=== PATIENT | female | born 1950 | race Caucasian/White ===

== ENCOUNTER 2016-10-08 09:02 | Emergency (ER) | payer MEDICARE, BC ==
[~2016-10-08] VITALS: Ht 177.8 cm; Wt 82.5 kg
[~2016-10-08 09:02] MED LIST: BABY81CH PO; TRAM50 PO; ZOVI200C24 PO; osteo-biflex
[2016-10-08 09:06] VITALS: BP 132/89; PULSE 104; RESP 16; TEMP 99.3; O2SAT 97
[2016-10-08] MEDS ORDERED: PROM6.256 PO (09:33)
[2016-10-08] MEDS ORDERED: ALLE12TA2 PO (09:33)
[2016-10-08] MEDS ORDERED: FLUT1SPR5 EACH NARE (09:33)
--- NOTE | 2016-10-08 09:33 | PD ---
HPI Chief Complaint: Cold / Flu Symptoms Time Seen by Provider: 09:17 Travel History International Travel<30 days: No Contact w/Intl Traveler<30days: No Traveled to known affect area: No History of Present Illness HPI This is a 66-year-old female who presents to the emergency department with 4 days of nasal congestion, rhinorrhea, nonproductive cough, body aches, and subjective fevers and chills. Her is sick with similar symptoms. She' s missed 3 days of work for this. She says the nasal congestion is keeping her up at night because she feels like she can't breathe. She has had decreased appetite. She is otherwise healthy with the exception of the diagnosis of Bean's esophagus. [facility] Past Medical History Immunizations Current: Yes ?: Not Menopausal: Yes Tubal Ligation: Yes Social History Alcohol Use: Yes (occ) Tobacco Use: No Substance Use: No Allergies-Medications (Allergen,Severity, Reaction): Coded Allergies: Codeine (Verified Allergy, Intermediate, nausea, 10/08/16) Reported Meds & Prescriptions Reported Meds & Active Scripts Active Ultram (Tramadol HCl) 50 Mg Tab 1 Tab PO QIDPRN FOR PAIN Reported [osteo-biflex] Baby Aspirin (Aspirin) 81 Mg Chw 81 Mg PO DAILY Zovirax (Acyclovir) 200 Mg Cap 0 PO DAILY UNKNOWN DOSE Review of Systems Except as stated in HPI: all other systems reviewed are Neg Physical Exam Narrative GENERAL:Well appearing, no acute distress SKIN: Warm and dry. HEAD: Atraumatic. Normocephalic. EYES: Pupils equal and round. No injection or drainage. ENT: Moist mucous membranes. Mild posterior pharyngeal erythema. Erythema and swelling of the turbinates bilaterally. NECK: Trachea midline. CARDIOVASCULAR: Regular rate and rhythm. No murmur appreciated. RESPIRATORY: Clear to auscultation. Breath sounds equal bilaterally. GASTROINTESTINAL: Abdomen soft, non-tender, nondistended. MUSCULOSKELETAL: No obvious deformities. NEUROLOGICAL: Awake and alert. No obvious cranial nerve deficits. Moving all extremities. PSYCHIATRIC: Appropriate mood and affect; insight and judgment normal. Data Data Last Documented VS Vital Signs Date Time Temp Pulse Resp B/P Pulse Ox O2 Delivery O2 Flow Rate FiO2 10/08/16 09:06 99.3 104 16 132/89 97 MDM Medical Decision Making Medical Screen Exam Complete: Yes Emergency Medical Condition: Yes Interpretation(s) Temperature is 99.3, pulse is 104 Differential Diagnosis Viral syndrome, sinusitis, pneumonia Narrative Course This is a 66-year-old female who presents to the emergency department with symptoms consistent with a viral upper respiratory infection. She is nontoxic appearing. I think the goal of management is primarily symptomatic. I recommended a decongestant during the day and codeine cough syrup for evenings. Patient was instructed to hydrate orally. She will return to the emergency department if her symptoms worsen. Diagnosis Primary Impression: Viral upper respiratory infection Patient Instructions: General Instructions Additional Instructions: If you develop severe chest pain, shortness of breath, sweating, lightheadedness , dizziness or difficulty breathing return to the emergency department immediately. Followup with your primary care physician in 2-3 days if your symptoms are not resolved. Med/Other Pt SpecificInfo: Prescription(s) given Scripts Promethazine-Codeine Liq 6.25-10 Mg/5 Ml Syrp5 Ml PO Q4H PRN (COUGH AND/OR COLD SYMPTOMS) #100 ML Prov:Ofe Curtis MD 10/08/16 Fexofenadine-Pseudoephedrine ER 12 HR (Leah-D 12 Hour Allergy)60-120 Mg Taber1 Tab PO BID #60 TAB Ref 0 Prov:Ofe Curtis MD 10/08/16 Fluticasone Nasal [place] (Flonase Nasal [place])50 Mcg/Act Sxrum419 Mcg EACH NARE BID PRN (NASAL CONGESTION) 7 Days Ref 0 Prov:Ofe Curtis MD 10/08/16 Disposition: 01 DISCHARGE HOME Condition: Stable Ofe Curtis MD Oct 08, 2016 09:33
== END 2016-10-08 09:57 | disposition home or self-care (01) ==
LOC: PHED 09:02
DX: J06.9 Acute upper respiratory infection, unspecified (principal)
CPT/HCPCS: 99283

== ENCOUNTER 2016-10-11 10:02 | Emergency (ER) | payer MEDICARE, BC ==
[~2016-10-11] VITALS: Ht 177.8 cm; Wt 81.1 kg
[~2016-10-11 10:02] MED LIST changes: +ALLE12TA2 PO; -BABY81CH PO; +FLUT1SPR5 EACH NARE; +PROM6.256 PO; -TRAM50 PO; -ZOVI200C24 PO
[2016-10-11 10:08] VITALS: BP 115/79; PULSE 84; RESP 16; TEMP 98.6; O2SAT 95
[2016-10-11] MEDS ORDERED: PANT40TA3 PO (10:19)
[2016-10-11] MEDS ORDERED: ACYC800T PO (10:19)
[2016-10-11 10:38] LABS: BLOOD, URINE NEG (NEG); GLUCOSE,URINE NEG (NEG); KETONE, URINE TRACE mg/dL (NEG); NITRITE,URINE NEG (NEG); PH, URINE 6.5 (5.0-8.5)
[2016-10-11 10:46] LABS: URINE COLOR YELLOW (YELLW/STRAW)
[2016-10-11 10:50] LABS: HYALINE CAST, URINE 1 /lpf (RARE); MUCUS URINE OCC /lpf (OCC); WBC, URINE 15-19 /hpf (0-5)
[2016-10-11 10:52] LABS: BACTERIA, URINE FEW /hpf; COMMENT (UR) CULTURE INDICATED; CULTURE IF INDICATED CULTURE INDICATED
[2016-10-11 11:11] LABS: AUTOMATED NEUTROPHIL # 1.7 TH/MM3 (1.8-7.7); BASOPHIL % 0.3 % (0.0-2.0); EOSINOPHIL # 0.1 TH/MM3 (0-0.4); EOSINOPHIL % 2.1 % (0.0-4.0); HEMATOCRIT 41.3 % (35.0-46.0); HEMO FLAGS DIFF FINAL; LYMPH % 42.1 % (9.0-44.0); LYMPHOCYTE # 1.6 TH/MM3 (1.0-4.8); MEAN CORPUSCULAR HEMOGLOBIN 31.6 PG (27.0-34.0); MEAN CORPUSCULAR HGB CONC 33.3 % (32.0-36.0); MONO % 10.6 % (0.0-8.0); NEUT % 44.9 % (16.0-70.0); PLATELET COUNT 198 TH/MM3 (150-450); RED BLOOD COUNT 4.35 MIL/MM3 (4.00-5.30); RED CELL DISTRIBUTION WIDTH 12.1 % (11.6-17.2); WHITE BLOOD COUNT 3.8 TH/MM3 (4.0-11.0)
[2016-10-11 11:15] LABS: CHLORIDE 105 MEQ/L (98-107); POTASSIUM 3.9 MEQ/L (3.5-5.1); SODIUM (NA) 141 MEQ/L (136-145)
--- NOTE | 2016-10-11 11:15 | RADHPO ---
EXAM DATE/TIME: 10/11/2016 11:07 [place] COMPARISON: No previous studies available for comparison. INDICATIONS : Cough, chest congestion. MEDICAL HISTORY : None. SURGICAL HISTORY : None. ENCOUNTER: Initial ACUITY: 4 - 6 days PAIN SCORE: 0/10 LOCATION: Bilateral chest FINDINGS: A single view of the chest demonstrates the lungs to be symmetrically aerated without evidence of mas s, infiltrate or effusion. The cardiomediastinal contours are unremarkable. Osseous structures are intact. CONCLUSION: No acute disease. Reji Tiwari MD on October 11, 2016 at 11:13 Board Certified Radiologist. This report was verified electronically.
[2016-10-11 11:20] LABS: ANION GAP 8 MEQ/L (5-15); BICARBONATE 27.6 MEQ/L (21.0-32.0); BLOOD UREA NITROGEN 17 MG/DL (7-18)
[2016-10-11 11:23] LABS: ALT (GPT) 21 U/L (10-53); AST (GOT) 19 U/L (15-37); GLOMERULAR FILTRATION RATE 56 ML/MIN (>89)
[2016-10-11 11:25] LABS: TOTAL BILIRUBIN ADULT 0.5 MG/DL (0.2-1.0)
[2016-10-11 11:26] LABS: ALKALINE PHOSPHATASE 55 U/L (45-117)
[2016-10-11] MEDS ORDERED: cefTRIAXone INJ 1,000 MG in SODIUM CHLORIDE 0.9% INJ 100 ML IV ONE (11:45)
--- NOTE | 2016-10-11 12:21 | PD ---
HPI Chief Complaint: Abdominal Pain Time Seen by Provider: 10:40 Travel History International Travel<30 days: No Contact w/Intl Traveler<30days: No Traveled to known affect area: No History of Present Illness HPI 66yo F with PMH of Bean's esophagus presents to the ED stating that she does not feel well enough to work tomorrow. Pt was seen on 10/08/16 at [facility] for nasal congestion, cough and impression was viral syndrome. Pt was given a work note and was suppose to go back to work tomorrow. However, pt states she still has congestion, cough, and does not feel well enough to return to work. Pt states she had persistent cough, chest congestion, and intermittent abdominal pain but no vomiting or diarrhea. No fever at home. PFSH Past Medical History Diminished Hearing: No GERD: Yes Medical other: Yes (herpes) Immunizations Current: Yes Influenza Vaccination: Yes ?: Not Menopausal: Yes Tubal Ligation: Yes Social History Alcohol Use: Yes (occ) Tobacco Use: No Substance Use: No Allergies-Medications (Allergen,Severity, Reaction): Coded Allergies: Codeine (Verified Allergy, Intermediate, nausea, 10/11/16) Reported Meds & Prescriptions Reported Meds & Active Scripts Active Leah-D 12 Hour Allergy (Fexofenadine-Pseudoephedrine ER 12 HR) 60-120 Mg [place] 1 Tab PO BID Flonase Nasal [place] (Fluticasone Nasal [place]) 50 Mcg/Act [place] 100 Mcg EACH NARE BID PRN 7 Days Reported Pantoprazole (Pantoprazole Sodium) 40 Mg Tab 40 Mg PO HS Acyclovir 800 Mg Tab 800 Mg PO HS Review of Systems Except as stated in HPI: all other systems reviewed are Neg Physical Exam Narrative GENERAL: 66yo F not in distress. SKIN: Warm and dry. HEAD: Atraumatic. Normocephalic. EYES: Pupils equal and round. No scleral icterus. No injection or drainage. ENT: No nasal bleeding or discharge. Mucous membranes pink and moist. Throat: Clear. NECK: Trachea midline. No JVD. CARDIOVASCULAR: Regular rate and rhythm. No murmur appreciated. RESPIRATORY: No accessory muscle use. Clear to auscultation. Breath sounds equal bilaterally. GASTROINTESTINAL: Abdomen soft, non-tender, nondistended. No rebound tenderness or guarding. MUSCULOSKELETAL: No obvious deformities. No clubbing. No cyanosis. No edema. NEUROLOGICAL: Awake and alert. No obvious cranial nerve deficits. Motor grossly within normal limits. Normal speech. PSYCHIATRIC: Appropriate mood and affect; insight and judgment normal. Data Data Last Documented VS Vital Signs Date Time Temp Pulse Resp B/P Pulse Ox O2 Delivery O2 Flow Rate FiO2 10/11/16 10:08 98.6 84 16 115/79 95 Orders Urinalysis - C+S If Indicated (10/11/16 10:27) Urine Culture (10/11/16 10:25) Complete Blood Count With Diff (10/11/16 10:55) Comprehensive Metabolic Panel (10/11/16 10:55) Chest, Single Ap (10/11/16 ) Ceftriaxone Inj (Rocephin Inj) (10/11/16 11:45) Labs Laboratory Tests Test 10/11/16 10/11/16 10:25 10:40 Urine Color YELLOW Urine Turbidity HAZY Urine pH 6.5 Urine Specific [place] 1.025 Urine Protein TRACE mg/dL Urine Glucose (UA) NEG mg/dL Urine Ketones TRACE mg/dL Urine Occult Blood NEG Urine Nitrite NEG Urine Bilirubin NEG Urine Leukocyte Esterase MOD Urine WBC 15-19 /hpf Urine WBC Clumps OCC Urine Squamous Epithelial 6-8 /hpf Cells Urine Bacteria FEW /hpf Urine Hyaline Casts 1 /lpf Urine Mucus OCC /lpf Microscopic Urinalysis Comment CULTURE INDICATED White Blood Count 3.8 TH/MM3 Red Blood Count 4.35 MIL/MM3 Hemoglobin 13.8 GM/DL Hematocrit 41.3 % Mean Corpuscular Volume 95.0 FL Mean Corpuscular Hemoglobin 31.6 PG Mean Corpuscular Hemoglobin 33.3 % Concent Red Cell Distribution Width 12.1 % Platelet Count 198 TH/MM3 Mean Platelet Volume 7.8 FL Neutrophils (%) (Auto) 44.9 % Lymphocytes (%) (Auto) 42.1 % Monocytes (%) (Auto) 10.6 % Eosinophils (%) (Auto) 2.1 % Basophils (%) (Auto) 0.3 % Neutrophils # (Auto) 1.7 TH/MM3 Lymphocytes # (Auto) 1.6 TH/MM3 Monocytes # (Auto) 0.4 TH/MM3 Eosinophils # (Auto) 0.1 TH/MM3 Basophils # (Auto) 0.0 TH/MM3 CBC Comment DIFF FINAL Differential Comment Sodium Level 141 MEQ/L Potassium Level 3.9 MEQ/L Chloride Level 105 MEQ/L Carbon Dioxide Level 27.6 MEQ/L Anion Gap 8 MEQ/L Blood Urea Nitrogen 17 MG/DL Creatinine 1.00 MG/DL Estimat Glomerular Filtration 56 ML/MIN Rate Random Glucose 86 MG/DL Calcium Level 8.2 MG/DL Total Bilirubin 0.5 MG/DL Aspartate Amino Transf 19 U/L (AST/SGOT) Alanine Aminotransferase 21 U/L (ALT/SGPT) Alkaline Phosphatase 55 U/L Total Protein 7.0 GM/DL Albumin 3.3 GM/DL [facility] Medical Decision Making Medical Screen Exam Complete: Yes Emergency Medical Condition: Yes Differential Diagnosis Viral syndrome vs. pneumonia vs. electrolyte abnormality Narrative Course 66yo F with symptoms consistent with a viral syndrome. This is her second ED visit for the same complaints. Pt is suppose to return to work tomorrow but feels that she is too unwell so that is well she is here. Labs reviewed, no leukocytosis. CMP unremarkable. UA showed moderate leukocyte. +Squamous but urine WBC is 15-19. Likely contamination but will still treat. Pt given ceftriaxone 1gm IV. Return precautions given. Diagnosis Primary Impression: UTI (urinary tract infection) Qualified Code: N39.0 - Urinary tract infection without hematuria, site unspecified Patient Instructions: General Instructions Departure Forms: Tests/Procedures, Work Release Enter return to work date: Oct 15, 2016 Additional Instructions: Please return to the ED if symptoms worsen. Please follow up with PMD at your appointment next week. Med/Other Pt SpecificInfo: Prescription(s) given Scripts Sulfamethoxazole-Trimethoprim (Bactrim DS)800-160 Mg Tab1 Tab PO BID 7 Days Ref 0 Prov:RobertArielle DO 10/11/16 Disposition: 01 DISCHARGE HOME Condition: Stable Arielle Jones DO Oct 11, 2016 12:19
[2016-10-11] MEDS ORDERED: BACT800T5 PO (12:40)
[2016-10-11 12:48] VITALS: BP 126/82
== END 2016-10-11 13:13 | disposition home or self-care (01) ==
LOC: PHED 10:02
DX: N39.0 Urinary tract infection, site not specified (principal); B96.89 Other specified bacterial agents as the cause of diseases classified elsewhere
CPT/HCPCS: 71010; 80053; 81001; 85025; 87086; 96365; 99284; J0696